=== PATIENT | female | born 2000 | race Caucasian/White ===

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

== ENCOUNTER 2022-10-18 19:01 | Emergency (ER) | payer BC, SELFPAY ==
[2022-10-18 19:09] VITALS: BP 142/99; PULSE 113; RESP 20; TEMP 37.2; O2SAT 99
[2022-10-18 22:49] LABS: Basophils Percent Auto 0.2 % (0.2-1.2); Eosinophils Percent Auto 0.2 % (0-4.4); Hematocrit 41.2 % (37.0-47.0); Hemoglobin 14.5 g/dL (12.0-15.0); Immature Granulocyte Absolute 0.07 K/mm3 (0.00-0.031); Immature Granulocyte Percent A 0.5 % (0-0.5); Lymphocytes Absolute Auto 0.95 K/mm3 (0.9-3.2); Lymphocytes Percent Auto 7.2 % (18.3-44.2); Mean Corpuscular HGB Conc 35.2 g/dl (32-36); Mean Corpuscular Hemoglobin 29.2 pg (26-34); Mean Corpuscular Volume 82.9 fl (80-100); Mean Platelet Volume 10.5 fl (7.4-10.4); Monocytes Absolute Auto 0.6 K/mm3 (0.1-0.6); Monocytes Percent Auto 4.8 % (2.6-8.5); Neutrophils Absolute Auto 11.5 K/mm3 (1.3-6.7); Neutrophils Percent Auto 87.1 % (45.5-73.1); Platelet Count Result 220 k/mm3 (150-375); Red Blood Count 4.97 M/mm3 (4.2-5.4); Red Cell Distribution Width 13.9 % (11.5-14.5); White Blood Count 13.2 K/mm3 (4.5-10.0)
--- NOTE | 2022-10-18 22:54 | ED.NAVMDI ---
HPI - Nausea/Vomiting/Diarrhea General Chief complaint: Nausea/Vomiting/Diarrhea <Arabella Torres PA-C - Last Filed: 10/19/22 02:43> Stated complaint: 7 wks , vomiting <Arabella Torres PA-C - Last Filed: 10/19/22 02:43> Time Seen by Provider: 10/18/22 22:23 <Arabella Torres PA-C - Last Filed: 10/19/22 02:43> History of Present Illness HPI Narrative: 22-year-old G1, P0 female who is currently about 7 weeks here for evaluation of nausea and vomiting today. Patient states that all day she has been unable to tolerate any p.o. after every trial. She denies any abdominal pain, vaginal bleeding, sudden gush of fluids. She has not yet established with an OB provider but her first appointment is next week. She did contact the office who recommended ED eval if she cannot keep down fluids. She denies any fevers, chills, diarrhea, constipation. <Arabella Torres PA-C - Last Filed: 10/19/22 02:43> Related Data Allergies/Adverse reactions: Allergies Allergy/AdvReac Type Severity Reaction Status Date / Time No Known Allergies Allergy Verified 04/08/20 11:27 <Arabelal Torres PA-C - Last Filed: 10/19/22 02:43> Review of Systems Review of Systems: Gen.: Denies fevers or chills Eyes: Denies eye pain or visual change ENT: Denies congestion Respiratory: Denies shortness of breath or cough CV: Denies chest pain or palpitations GI: Reports nausea and vomiting. Denies abdominal pain or diarrhea denies burning, urgency, frequency or hematuria Musculoskeletal: Denies back pain or muscle pain Neuro: Denies numbness, tingling, weakness or focal weakness Skin: Denies rash Except as documented, all other systems reviewed and negative <Arabella Torres PA-C - Last Filed: 10/19/22 02:43> [facility] Past Medical History Medical History: Medical History History of 2019 novel coronavirus disease (COVID-19) <Arabella Torres PA-C - Last Filed: 10/19/22 02:43> Surgical History Surgical History: Surgical History History of myringotomy <Arabella Torres PA-C - Last Filed: 10/19/22 02:43> Exam Narrative: APPEARANCE: Well appearing, no pain in distress, well-nourished. Head: Normocephalic and atraumatic. EYES: PERRLA/EOMI, conjunctivae clear NOSE: No nasal drainage EARS: External ear normal in appearance THROAT: Oropharynx is clear. Mucous membranes are moist. NECK: Supple. No adenopathy, no masses. RESPIRATORY: Airway patent, respirations nonlabored. Clear to auscultation bilaterally, no rales, rhonchi, wheezing. CARDIOVASCULAR: Regular rate and rhythm without murmurs, rubs, or gallops. ABDOMINAL: Normoactive bowel sounds. Soft, nontender, nondistended. No rebound tenderness or guarding. MUSCULOSKELETAL: Extremities are warm and well-perfused. Moves all extremities well. No edema. NEURO: Normal speech. No focal neurologic deficits. SKIN: Skin is warm and dry. No rashes. PSYCHIATRIC: Normal affect/mood. <Arabella Torres PA-C - Last Filed: 10/19/22 02:43> Course SUSTAINABILITY SPECIALIST/PA Physician Supervision For this encounter, I have reviewed the mid-level provider documentation, treatment plan and medical decision making. I have had [id number] time with the patient. physical exam revealed a uncomfortable appearing 22-year-old female. Laboratory studies were consistent with dehydration. Urinalysis had +4 ketones but also white blood cells with some bacteria. Patient does not have urinary symptoms but given her she will be treated with antibiotics. Upon re-evaluation patient is feeling much better. She is tolerating p.o.. She will be discharged with prescriptions for antiemetics. She has been instructed follow-up with her OBGYN. . All questions answered. Patient in agreement w/ disposition. <Fabiano Pearson,
[2022-10-18 22:55] LABS: Appearance Urine Cloudy (Clear); Bilirubin Urine 1+ (Negative); Blood Urine Negative (Negative); Color Urine Amber (Yellow); Glucose Urine UA Negative (Negative); Ketones Urine 4+ mg/dL (Negative); Leukocyte Esterase Ur Negative LEU/UL (Negative); Nitrate Urine Negative (Negative); Protein Urine 1+ mg/dL (Negative); Specific Grav Ur >= 1.030 (1.001-1.035); Urobilinogen Urine 0.2 mg/dL (<2.0)
[2022-10-18 23:00] LABS: Alanine Aminotransferase 23 U/L (6-35); Albumin Level 4.9 g/dL (3.5-5.1); Alkaline Phosphatase 43 U/L (38-126); Anion Gap 8 mmol/L (8-16); Aspartate Amino Transferase 29 U/L (14-36); Blood Urea Nitrogen 9 mg/dL (7-17); Calcium 9.3 mg/dL (8.4-10.2); Carbon Dioxide 26 mmol/L (22-30); Chloride 100 mmol/L (98-107); Estimated CRCL calculation 109 ml/min; Estimated Glomerular Filt Rate > 60; Glucose 92 mg/dL (65-110); Lipase 40 U/L (23-300); Potassium 3.7 mmol/L (3.4-5.0); Sodium 134 mmol/L (137-145)
[2022-10-18 23:01] LABS: Bacteria Urine 2+ /hpf; Mucus Urine Heavy /lpf; Squamous Epithelial Cell Urine Many /hpf (Few)
[2022-10-18 23:13] LABS: Add Urine Microscopic? YES
[2022-10-19] VITALS (12 sets, daily range): BP systolic 97–125; BP diastolic 60–75; O2SAT 99–100
[2022-10-19] MEDS: LACTATED RINGERS 1,000 ML 999 ML IV CONT ×2 (00:20→00:27)
[2022-10-19] MEDS: METOCLOPRAMIDE HCL INJ 10 MG/2 ML VIAL IV PUSH (00:21)
== END 2022-10-19 02:45 | disposition home or self-care (01) ==
PROVIDERS: Emergency Medicine; Emergency Provider Physician Assistant
DX: O21.9 Vomiting of pregnancy, unspecified (principal); Z86.16 Personal history of COVID-19; Z3A.01 Less than 8 weeks gestation of pregnancy
CPT/HCPCS: 36415; 80053; 81001; 81025; 83690; 84702; 85025; 87086; 96361; 96374; 99284; J2765; J7120